=== PATIENT | female | born 1960 | race Caucasian/White ===

== ENCOUNTER 2018-05-07 06:06 | Day surgery (SDC) | payer OTHER, BC ==
[2018-05-07] MEDS ORDERED: MIDAZOLAM 1 MG/ML 2 ML INJ ×2 (08:55)
[2018-05-07] MEDS ORDERED: FENTAnyl 50 MCG/ML VIAL (08:55)
== END 2018-05-07 15:12 | disposition home or self-care (01) ==
LOC: GIL 06:06
DX: Z12.11 Encounter for screening for malignant neoplasm of colon (principal); K64.8 Other hemorrhoids; K57.30 Diverticulosis of large intestine without perforation or abscess without bleeding
CPT/HCPCS: 45378

== ENCOUNTER 2019-01-05 05:51 | Emergency (ER) | payer OTHER | END 2019-01-05 06:45 | disposition home or self-care (01) | LOC: E/R 05:51 | DX: R42 Dizziness and giddiness (principal); R11.0 Nausea | CPT/HCPCS: 99283; Z7502 ==